=== PATIENT | female | born 1990 | race Caucasian/White ===

== ENCOUNTER 2018-02-18 17:50 | Emergency (ER) | payer OTHER, MEDICAID ==
[~2018-02-18] VITALS: Ht 157.5 cm; Wt 74.8 kg
[~2018-02-18 17:50] MED LIST: AMOXICILLIN 50500 MG PO; AMOXICILLIN875 MG PO; BIRTH CONTROL; BIRTH CONTROL PO; CIPROFLOXACIN500 M1 PO; LEXAPRO 10 MG T10 M2 PO; LIDOCAINE VISC100 M1 SWISH&SPIT; NOHOMEMEDICATIONS; PREMARIN0.3 MG PO; PROAIR HFA8.5 GM INH; PROVERA10 MG PO; TESSALON PERLE100 MG PO; TRINATE TABLET1 TAB PO; ZOFRAN4 MG PO; ZPAK PO
[2018-02-18] MEDS ORDERED: PRENATAL PO (18:08)
[2018-02-18] MEDS ORDERED: AUGMENTIN 875-1 EACH PO (18:47)
[2018-02-18] MEDS ORDERED: PROAIR HFA8.5 GM INH (18:47)
[2018-02-18 18:54] LABS: INFLUENZA A ANTIGEN None Detected (None Detect); INFLUENZA B ANTIGEN None Detected (None Detect)
[2018-02-18 19:06] VITALS: BP 115/80
== END 2018-02-18 19:08 | disposition home or self-care (01) ==
LOC: M.ERS 17:50
PROVIDERS: Nurse Practitioner Family
DX: J20.9 Acute bronchitis, unspecified (principal); F41.9 Anxiety disorder, unspecified; F17.210 Nicotine dependence, cigarettes, uncomplicated

== ENCOUNTER 2019-02-10 14:36 | Emergency (ER) | payer OTHER ==
[~2019-02-10] VITALS: Ht 157.5 cm; Wt 68.0 kg
[~2019-02-10 14:36] MED LIST changes: +AUGMENTIN 875-1 EACH PO; +PRENATAL PO
[2019-02-10] MEDS ORDERED: IBUPROFEN 800800 MG PO (15:33)
[2019-02-10] MEDS ORDERED: PENICILLIN V P500 MG PO (15:33)
[2019-02-10 15:49] VITALS: BP 122/82
== END 2019-02-10 15:50 | disposition home or self-care (01) ==
LOC: M.ERS 14:36
DX: S02.5XXA Fracture of tooth (traumatic), initial encounter for closed fracture (principal); F41.9 Anxiety disorder, unspecified; F17.210 Nicotine dependence, cigarettes, uncomplicated; X58.XXXA Exposure to other specified factors, initial encounter; Y93.89 Activity, other specified; Y92.89 Other specified places as the place of occurrence of the external cause; Y99.8 Other external cause status

== ENCOUNTER 2019-08-13 19:18 | Emergency (ER) | payer OTHER ==
[~2019-08-13] VITALS: Ht 157.5 cm; Wt 65.8 kg
[~2019-08-13 19:18] MED LIST changes: +IBUPROFEN 800800 MG PO; +PENICILLIN V P500 MG PO
[2019-08-13 19:20] VITALS: BP 140/98
[2019-08-13] MEDS ORDERED: PENICILLIN V P500 MG PO (19:38)
[2019-08-13] MEDS ORDERED: NORCO 5-325 TA1 EAC1 PO (19:38)
== END 2019-08-13 19:49 | disposition home or self-care (01) ==
LOC: M.ERS 19:18
DX: K02.9 Dental caries, unspecified (principal); K00.7 Teething syndrome; F17.210 Nicotine dependence, cigarettes, uncomplicated

== ENCOUNTER 2020-02-19 02:58 | Emergency (ER) | payer OTHER ==
[~2020-02-19] VITALS: Ht 157.5 cm; Wt 72.6 kg
[~2020-02-19 02:58] MED LIST changes: +NORCO 5-325 TA1 EAC1 PO
[2020-02-19 03:47] LABS: URINE BLOOD 3+ (Negative); URINE GLUCOSE-RANDOM NEGATIVE (Negative); URINE KETONES NEGATIVE (Negative); URINE LEUKOCYTES-REFLEX TRACE (Negative); URINE NITRITE-REFLEX NEGATIVE (Negative); URINE PROTEIN 1+ (Negative); URINE SPECIFIC GRAVITY 1.025 (1.005-1.030); URINE UROBILINOGEN 0.2 E.U./dl (0.2-1.0)
[2020-02-19 03:49] LABS: ICTOTEST (BILI CONFIRMATORY) Negative (Negative); URINE BILIRUBIN 1+ (Negative); URINE CLARITY SL CLOUDY; URINE COLOR AMBER
[2020-02-19 04:00] LABS: CASTS None Seen /LPF (None Seen); CRYSTALS None Seen /LPF (None Seen); MUCUS 0-3 Light strn/LPF (None Seen); SQUAMOUS 0-3 Few /LPF (0-3); URINE RBC >20 Many /HPF (0-2); URINE WBC-REFLEX 0-5 Rare /HPF (0-5)
[2020-02-19] MEDS ORDERED: PREDNISONE50 MG PO (04:41)
[2020-02-19 05:07] VITALS: BP 134/78
[2020-02-19 05:08] LABS: AMP/METHAMP Negative (Negative); BARBITURATES Negative (Negative); BENZODIAZEPINES Negative (Negative); COCAINE Negative (Negative); METHADONE Negative (Negative); OPIATES Negative (Negative); PCP Negative (Negative); THC Negative (Negative)
== END 2020-02-19 05:09 | disposition home or self-care (01) ==
LOC: M.ERS 02:58
PROVIDERS: Emergency Medicine
DX: K12.2 Cellulitis and abscess of mouth (principal); F41.9 Anxiety disorder, unspecified; F17.210 Nicotine dependence, cigarettes, uncomplicated